=== PATIENT | male | born 1980 | race Native Hawaiian/Other Pacific Islander ===

== ENCOUNTER 2017-05-16 00:52 | Observation (INO) | payer OTHER ==
[2017-05-16] VITALS (9 sets, daily range): BP systolic 108–146; BP diastolic 56–85; PULSE 44–92; RESP 14–16; TEMP 98.4–98.7; O2SAT 100
[~2017-05-16] VITALS: Ht 167.6 cm; Wt 72.1 kg
[2017-05-16] MEDS ORDERED: SODIUM CHLOR 0.9% 1000 ML INJ 1,000 ML IV SCH (01:43)
[2017-05-16] MEDS ORDERED: ONDANSETRON HCL 4 MG/2 ML VIAL IVP ONE (01:45)
[2017-05-16] MEDS ORDERED: SODIUM CHLORIDE 0.9% FLUSH 10 ML FLUSH IV FLUSH PRN ×2 (01:45→08:30)
[2017-05-16] MEDS ORDERED: ATROPINE/SCOPOLAM/HYOSCYAM/PB ELIXIR 10 ML CUP PO ONE (01:45)
[2017-05-16] MEDS ORDERED: MORPHINE SULFATE 2 MG/ML INJ IV PUSH ONE (01:45)
[2017-05-16] MEDS ORDERED: ALUMINUM/MAGNESIUM/SIMETH 30 ML CUP PO ONE (01:45)
[2017-05-16] MEDS ORDERED: FAMOTIDINE 20 MG/2 ML VIAL IV PUSH ONE (01:45)
--- NOTE | 2017-05-16 01:47 | PD ---
HPI Chief Complaint: Abdominal Pain Time Seen by Provider: 01:37 Travel History International Travel<30 days: No Contact w/Intl Traveler<30days: No Traveled to known affect area: No History of Present Illness HPI 37 years old male complains of abdominal pain. Patient states the pain started 3 hours ago. Patient states the pain in cramping pain localized throughout epigastric periumbilical area. Patient denies any pain radiation. Patient states that he has nausea but no vomiting or diarrhea. Patient denies any dysuria or frequency. Patient denies any back pain. Patient denies any fever chills. Patient states that he had the same kind of pain about 2 years ago. Patient was seen by a physician and had blood tests done and sonogram done of the abdomen which were normal. Patient denies any medical problem. Patient's on Zantac for reflux problem. Patient denies any alcohol or illicit drug abuse. On a scale of 1-10 the pain is a 9. PFSH Past Medical History Medical History: Denies Significant Hx Tetanus Vaccination: < 5 Years Influenza Vaccination: No Past Surgical History Surgical History: No Previous Surgery Social History Alcohol Use: No Tobacco Use: No Substance Use: No Allergies-Medications (Allergen,Severity, Reaction): Coded Allergies: No Known Allergies (Unverified , 05/16/17) Review of Systems General / Constitutional: No: Fever Eyes: No: Visual changes HENT: No: Headaches Cardiovascular: No: Chest Pain or Discomfort Respiratory: No: Shortness of Breath Gastrointestinal: Positive: Abdominal Pain Genitourinary: No: Dysuria Musculoskeletal: No: Pain Skin: No Rash Neurologic: No: Weakness Psychiatric: No: Depression Endocrine: No: Polydipsia Hematologic/Lymphatic: No: Easy Bruising Physical Exam Narrative GENERAL: Well-nourished, well-developed patient. SKIN: Focused skin assessment warm/dry. HEAD: Normocephalic. EYES: No scleral icterus. No injection or drainage. NECK: Supple, trachea midline. No JVD or lymphadenopathy. CARDIOVASCULAR: Regular rate and rhythm without murmurs, gallops, or rubs. RESPIRATORY: Breath sounds equal bilaterally. No accessory muscle use. GASTROINTESTINAL: Abdomen soft, nondistended. Patient has moderate tenderness on palpation epigastric and periumbilical area. No rebound tenderness. No mass. MUSCULOSKELETAL: No cyanosis, or edema. BACK: Nontender without obvious deformity. No CVA tenderness. Neurologic exam normal. Data Data Last Documented VS Vital Signs Date Time Temp Pulse Resp B/P (MAP) Pulse Ox O2 Delivery O2 Flow Rate FiO2 05/16/17 02:48 16 05/16/17 02:10 100 Room Air 05/16/17 01:25 64 05/16/17 01:02 98.6 Orders Orders Complete Blood Count With Diff (05/16/17 01:43) Comprehensive Metabolic Panel (05/16/17 01:43) Lipase (05/16/17 01:43) Urinalysis - C+S If Indicated (05/16/17 01:43) Ct Abd/Pel W Iv Contrast(Rout) (05/16/17 01:43) Iv Access Insert/Monitor (05/16/17 01:43) Ecg Monitoring (05/16/17 01:43) Oximetry (05/16/17 01:43) Ondansetron Inj (Zofran Inj) (05/16/17 01:45) Sodium Chlor 0.9% 1000 Ml Inj (Ns 1000 M (05/16/17 01:43) Sodium Chloride 0.9% Flush (Ns Flush) (05/16/17 01:45) Famotidine Inj (Pepcid Inj) (05/16/17 01:45) Morphine Inj (Morphine Inj) (05/16/17 01:45) Al-Mag Hy-Si 40-40-4 Mg/Ml Liq (Mag-Al P (05/16/17 01:45) Vkgbd-Bgstkq-Hxrwtm-Pb Liq ( Liq (05/16/17 01:45) Iohexol 350 Inj (Omnipaque 350 Inj) (05/16/17 02:42) Hydromorphone Pf Inj (Dilaudid Pf Inj) (05/16/17 03:15) Piperacil-Tazo 3.375 Gm Premix (Zosyn 3. (05/16/17 03:15) Labs Laboratory Tests Test 05/16/17 01:54 White Blood Count 9.9 TH/MM3 Red Blood Count 5.91 MIL/MM3 Hemoglobin 15.1 GM/DL Hematocrit 47.2 % Mean Corpuscular Volume 79.9 FL Mean Corpuscular Hemoglobin 25.5 PG Mean Corpuscular Hemoglobin Concent 31.9 % Red Cell Distribution Width 13.2 % Platelet Count 253 TH/MM3 Mean Platelet Volume 8.8 FL Neutrophils (%) (Auto) 59.8 % Lymphocytes (%) (Auto) 28.9 % Monocytes (%) (Auto) 5.1 % Eosinophils (%) (Auto) 5.2 % Basophils (%) (Auto) 1.0 % Neutrophils # (Auto) 5.9 TH/MM3 Lymphocytes # (Auto) 2.9 TH/MM3 Monocytes # (Auto) 0.5 TH/MM3 Eosinophils # (Auto) 0.5 TH/MM3 Basophils # (Auto) 0.1 TH/MM3 CBC Comment DIFF FINAL Differential Comment Blood Urea Nitrogen 17 MG/DL Creatinine 0.89 MG/DL Random Glucose 96 MG/DL Total Protein 8.2 GM/DL Albumin 4.2 GM/DL Calcium Level 9.2 MG/DL Alkaline Phosphatase 107 U/L Aspartate Amino Transf (AST/SGOT) 12 U/L Alanine Aminotransferase (ALT/SGPT) 45 U/L Total Bilirubin 0.6 MG/DL Sodium Level 141 MEQ/L Potassium Level 3.6 MEQ/L Chloride Level 104 MEQ/L Carbon Dioxide Level 27.0 MEQ/L Anion Gap 10 MEQ/L Estimat Glomerular Filtration Rate 97 ML/MIN Lipase 117 U/L [facility] Medical Decision Making Medical Screen Exam Complete: Yes Emergency Medical Condition: Yes Interpretation(s) Last Impressions Abdomen/Pelvis CT 05/16/17 0143 Signed Impressions: Service Date/Time: Tuesday, May 16, 2017 02:34 - CONCLUSION: 1. Enlarged fluid-filled appendix but no inflammatory changes. Early appendicitis could be considered. Correlation with clinical findings is recommended. Jerry Monroy MD 3:12 AM. CBC WBC 9.9. Hemoglobin 15.1 hematocrit 47.2. MCV 79.9. Normal differential. CMP within normal limit. Differential Diagnosis Differential diagnosis including gastritis, PUD, pancreatitis, cholecystitis, colitis, UTI, pyelonephritis, nephrolithiasis. Narrative Course 37 years old male with epigastric and periumbilical pain. Normal saline solution 1 25 cc an hour. Morphine 2 mg IV. Zofran 4 mg IV. Pepcid 20 mg IV. Maalox 30 cc by mouth. 10 cc by mouth. Dilaudid 1 mg IV. Zosyn 3.375 g IV given. Diagnosis Primary Impression: Appendicitis Qualified Codes: K35.3 - Acute appendicitis with localized peritonitis Admitting Information Admitting Physician Requests: Admit Maico Diaz MD May 16, 2017 01:47
[2017-05-16 02:21] LABS: AUTOMATED NEUTROPHIL # 5.9 TH/MM3 (1.8-7.7); BASOPHIL # 0.1 TH/MM3 (0-0.2); CHLORIDE 104 MEQ/L (98-107); EOSINOPHIL # 0.5 TH/MM3 (0-0.4); EOSINOPHIL % 5.2 % (0.0-4.0); HEMATOCRIT 47.2 % (39.0-51.0); HEMOGLOBIN 15.1 GM/DL (13.0-17.0); LYMPH % 28.9 % (9.0-44.0); LYMPHOCYTE # 2.9 TH/MM3 (1.0-4.8); MEAN CELL VOLUME 79.9 FL (80.0-100.0); MEAN CORPUSCULAR HEMOGLOBIN 25.5 PG (27.0-34.0); MEAN CORPUSCULAR HGB CONC 31.9 % (32.0-36.0); MEAN PLATELET VOLUME 8.8 FL (7.0-11.0); MONO % 5.1 % (0.0-8.0); MONOCYTE # 0.5 TH/MM3 (0-0.9); NEUT % 59.8 % (16.0-70.0); PLATELET COUNT 253 TH/MM3 (150-450); RED BLOOD COUNT 5.91 MIL/MM3 (4.50-5.90); RED CELL DISTRIBUTION WIDTH 13.2 % (11.6-17.2); SODIUM (NA) 141 MEQ/L (136-145); WHITE BLOOD COUNT 9.9 TH/MM3 (4.0-11.0)
[2017-05-16 02:24] LABS: CALCIUM 9.2 MG/DL (8.5-10.1)
[2017-05-16 02:25] LABS: ALBUMIN 4.2 GM/DL (3.4-5.0); BLOOD UREA NITROGEN 17 MG/DL (7-18); GLUCOSE,RANDOM 96 MG/DL (74-106); LIPASE 117 U/L (73-393)
[2017-05-16 02:28] LABS: ALT (GPT) 45 U/L (12-78); AST (GOT) 12 U/L (15-37); CREATININE 0.89 MG/DL (0.60-1.30); GLOMERULAR FILTRATION RATE 97 ML/MIN (>89)
[2017-05-16 02:30] LABS: TOTAL BILIRUBIN ADULT 0.6 MG/DL (0.2-1.0); TOTAL PROTEIN 8.2 GM/DL (6.4-8.2)
[2017-05-16 02:31] LABS: ALKALINE PHOSPHATASE 107 U/L (45-117)
[2017-05-16] MEDS ORDERED: IOHEXOL 350 MG/ML 10 ML VIAL (for RAD DIAG) IVCONTRAST ONE (02:42)
--- NOTE | 2017-05-16 03:05 | RADRPT ---
EXAM DATE/TIME: 05/16/2017 02:34 [place] COMPARISON: No previous studies available for comparison. INDICATIONS : Periumbilical pain. IV CONTRAST: 100 cc Omnipaque 350 (iohexol) IV ORAL CONTRAST: No oral contrast ingested. RADIATION DOSE: 6.67 CTDIvol (mGy) MEDICAL HISTORY : None SURGICAL HISTORY : None. ENCOUNTER: Initial ACUITY: 1 day PAIN SCALE: 9/10 LOCATION: [facility] TECHNIQUE: Volumetric scanning of the abdomen and pelvis was performed. Using automated exposure control and ad justment of the mA and/or kV according to patient size, radiation dose was kept as low as reasonably achievable to obtain optimal diagnostic quality images. DICOM format image data is available electro nically for review and comparison. FINDINGS: The liver and spleen are free of focal defects. The gallbladder and pancreas demonstrate no abnormali ty. The adrenal glands are normal. The kidneys demonstrate no evidence of solid renal mass or hydrone phrosis. No free fluid or abdominal masses are identified. No para-aortic adenopathy is seen. The femi endix is fluid-filled and enlarged measuring 12 mm but no parapelvic she'll inflammatory changes are identified. No appendicolith is present. Examination of the pelvis demonstrates no evidence of free fluid or pelvic mass. No abnormally enlarg ed inguinal or retroperitoneal lymph nodes are present. The bladder is unremarkable. CONCLUSION: 1. Enlarged fluid-filled appendix but no inflammatory changes. Early appendicitis could be considered . Correlation with clinical findings is recommended. Jerry Monroy MD on May 16, 2017 at 2:54 Board Certified Radiologist. This report was verified electronically.
[2017-05-16] MEDS ORDERED: HYDROmorphone HCL PF 2 MG/ML VIAL IV PUSH ONE (03:15)
[2017-05-16] MEDS ORDERED: PIPERACIL-TAZO 3.375 GM PREMIX 50 ML IV ONE (03:15)
[2017-05-16] MEDS ORDERED: ZANT150T2 PO (06:36)
[2017-05-16] MEDS ORDERED: MORPHINE SULFATE 2 MG/ML INJ IV PUSH PRN ×2 (08:30→08:45)
[2017-05-16] MEDS ORDERED: PANTOPRAZOLE SODIUM 40 MG VIAL IV PUSH SCH (09:00)
[2017-05-16] MEDS ORDERED: SODIUM CHLORIDE 0.9% FLUSH 10 ML FLUSH IV FLUSH SCH (09:00)
--- NOTE | 2017-05-16 10:23 | PD.CONS ---
cc: Teofilo Ramirez MD HPI Service General Surgery Consult Requested By Dr. Diaz Reason for Consult Abdominal pain; CT scan shows early acute appendicitis. Primary Care Physician No Primary Care Physician History of Present Illness This is a 37 year old male with a past medical history of acid reflux who presents to the ED with complaints of abdominal pain that began yesterday at about 5PM. He did have some spicy chicken and rice just before the onset of abdominal pain. The patient had a similar episode of abdominal pain but the workup was all negative. Labs were obtained which was essentially negative. A CT abdomen pelvis was obtained which shows an enlarged fluid-filled appendix and there is a consideration for early appendicitis. The patient's last meal was yesterday in the late afternoon. A General Surgery consultation has been requested. Review of Systems Constitutional: DENIES: Fatigue, Change in appetite Endocrine: DENIES: Polydipsia, Polyuria, Polyphagia Eyes: DENIES: Diplopia Ears, nose, mouth, throat: DENIES: Hearing loss Respiratory: DENIES: Apneas, Cough Cardiovascular: DENIES: Chest pain Gastrointestinal: COMPLAINS OF: Abdominal pain, Nausea, DENIES: Vomiting Genitourinary: DENIES: Urgency Musculoskeletal: DENIES: Joint pain Integumentary: DENIES: Abnormal pigmentation Hematologic/lymphatic: DENIES: Bruising Neurologic: DENIES: Headache, Localized weakness Psychiatric: DENIES: Mood changes, Depression, Hallucinations Past Family Social History Past Medical History Acid reflux Past Surgical History None Reported Medications Zantac Allergies: Coded Allergies: No Known Allergies (Unverified , 05/16/17) Active Ordered Medications Current Medications Medications (Trade) Dose Ordered Sig/Charles Route Start Time Stop Time Status Last Admin (NS Flush) 2 ml BID IV FLUSH 05/16/17 09:00 05/16/17 10:00 (NS Flush) 2 ml UNSCH PRN IV FLUSH 05/16/17 08:30 (Protonix Inj) 40 mg DAILY IV PUSH 05/16/17 09:00 05/16/17 10:00 (Morphine Inj) 2 mg Q6H PRN IV PUSH 05/16/17 08:45 (Morphine Inj) 2 mg Q3H PRN IV PUSH 05/16/17 08:30 05/16/17 10:00 Piperacillin Sod/ Tazobactam Sod 50 ml @ 100 mls/hr Q8H IV 05/16/17 12:00 Family History Non contributory Social History Denies tobacco use Denies ETOH use Denies illicit drug use 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 Physical Exam Vital Signs Vital Signs Date Time Temp Pulse Resp B/P (MAP) Pulse Ox O2 Delivery O2 Flow Rate FiO2 05/16/17 07:19 05/16/17 06:06 98.4 61 16 108/63 (78) 100 Room Air 05/16/17 03:51 16 05/16/17 03:21 44 16 121/60 (80) 100 Room Air 05/16/17 02:51 44 16 143/74 (97) 100 Room Air 05/16/17 02:48 16 05/16/17 02:21 46 16 112/73 (86) 100 Room Air 05/16/17 02:10 16 100 Room Air 05/16/17 01:25 64 16 146/85 (105) 100 Room Air 05/16/17 01:02 98.6 59 14 139/80 (99) 100 Physical Exam GENERAL: Pleasant 37 year old male resting in bed in mild acute pain. SKIN: Warm and dry. HEAD: Atraumatic. Normocephalic. EYES: Pupils equal and round. No scleral icterus. No injection or drainage. ENT: No nasal bleeding or discharge. Mucous membranes pink and moist. NECK: Trachea midline. CARDIOVASCULAR: Regular rate and rhythm. RESPIRATORY: No accessory muscle use. Clear to auscultation. Breath sounds equal bilaterally. GASTROINTESTINAL: Abdomen soft, nondistended. RLQ tenderness to palpation. No visible scars or hernias. MUSCULOSKELETAL: Extremities without clubbing, cyanosis, or edema. No obvious deformities. NEUROLOGICAL: Awake and alert. No obvious cranial nerve deficits. Motor grossly within normal limits. Five out of 5 muscle strength in the arms and legs. Normal speech. PSYCHIATRIC: Appropriate mood and affect; insight and judgment normal. Laboratory Laboratory Tests Test 05/16/17 01:54 White Blood Count 9.9 Red Blood Count 5.91 Hemoglobin 15.1 Hematocrit 47.2 Mean Corpuscular Volume 79.9 Mean Corpuscular Hemoglobin 25.5 Mean Corpuscular Hemoglobin Concent 31.9 Red Cell Distribution Width 13.2 Platelet Count 253 Mean Platelet Volume 8.8 Neutrophils (%) (Auto) 59.8 Lymphocytes (%) (Auto) 28.9 Monocytes (%) (Auto) 5.1 Eosinophils (%) (Auto) 5.2 Basophils (%) (Auto) 1.0 Neutrophils # (Auto) 5.9 Lymphocytes # (Auto) 2.9 Monocytes # (Auto) 0.5 Eosinophils # (Auto) 0.5 Basophils # (Auto) 0.1 CBC Comment DIFF FINAL Differential Comment Blood Urea Nitrogen 17 Creatinine 0.89 Random Glucose 96 Total Protein 8.2 Albumin 4.2 Calcium Level 9.2 Alkaline Phosphatase 107 Aspartate Amino Transf (AST/SGOT) 12 Alanine Aminotransferase (ALT/SGPT) 45 Total Bilirubin 0.6 Sodium Level 141 Potassium Level 3.6 Chloride Level 104 Carbon Dioxide Level 27.0 Anion Gap 10 Estimat Glomerular Filtration Rate 97 Lipase 117 Result Diagram: 05/16/17 0154 05/16/17 0154 Imaging Last 48 hours Impressions Abdomen/Pelvis CT 05/16/17 0143 Signed Impressions: Service Date/Time: Tuesday, May 16, 2017 02:34 - CONCLUSION: 1. Enlarged fluid-filled appendix but no inflammatory changes. Early appendicitis could be considered. Correlation with clinical findings is recommended. Jerry Monroy MD Assessment and Plan Assessment and Plan 37 year old male with abdominal pain; nausea; CT and physical exam findings of consistent with acute appendicitis -Plan for OR today -Obtain consents -Zosyn -IV Morphine for pain -Zofran -IVF -Procedure explained and all questions answered Discussed Condition With Jumana Harvey May 16, 2017 10:22
[2017-05-16] MEDS ORDERED: ONDANSETRON HCL 4 MG/2 ML VIAL IV PUSH PRN (10:30)
--- NOTE | 2017-05-16 10:51 | HHI.HP ---
cc: Teofilo Ramirez MD [facility] Service ADMISSION NOTE FOR SURGICAL ATTENDING, DR. TEOFILO RAMIREZ General Surgery Primary Care Physician No Primary Care Physician Admission Diagnosis acute appendicitis Chief Complaint: Abdominal pain History of Present Illness This is a 37 year old male with a past medical history of acid reflux who presents to the ED with complaints of abdominal pain that began yesterday at about 5PM. He did have some spicy chicken and rice just before the onset of abdominal pain. The patient had a similar episode of abdominal pain but the workup was all negative. Labs were obtained which was essentially negative. A CT abdomen pelvis was obtained which shows an enlarged fluid-filled appendix and there is a consideration for early appendicitis. The patient's last meal was yesterday in the late afternoon. A General Surgery consultation has been requested. Review of Systems ROS Limitations: Clinical Condition (alert and oriented) Constitutional: DENIES: Fatigue, Weight loss Endocrine: DENIES: Polydipsia, Polyuria, Polyphagia Eyes: DENIES: Diplopia Ears, nose, mouth, throat: DENIES: Hearing loss Respiratory: DENIES: Cough Cardiovascular: DENIES: Chest pain, Syncope Gastrointestinal: COMPLAINS OF: Abdominal pain, Nausea, DENIES: Vomiting Genitourinary: DENIES: Urgency Musculoskeletal: DENIES: Joint pain Integumentary: DENIES: Abnormal pigmentation Hematologic/lymphatic: DENIES: Bruising Immunologic/allergic: DENIES: Eczema Neurologic: DENIES: Headache, Localized weakness Psychiatric: DENIES: Mood changes, Depression Past Family Social History Past Medical History Acid reflux Past Surgical History None Reported Medications Zantac Allergies: Coded Allergies: No Known Allergies (Unverified , 05/16/17) Active Ordered Medications Current Medications Medications (Trade) Dose Ordered Sig/Charles Route Start Time Stop Time Status Last Admin (NS Flush) 2 ml BID IV FLUSH 05/16/17 09:00 05/16/17 10:00 (NS Flush) 2 ml UNSCH PRN IV FLUSH 05/16/17 08:30 (Protonix Inj) 40 mg DAILY IV PUSH 05/16/17 09:00 05/16/17 10:00 (Morphine Inj) 2 mg Q6H PRN IV PUSH 05/16/17 08:45 (Morphine Inj) 2 mg Q3H PRN IV PUSH 05/16/17 08:30 05/16/17 10:00 Piperacillin Sod/ Tazobactam Sod 50 ml @ 100 mls/hr Q8H IV 05/16/17 12:00 (Zofran Inj) 4 mg Q6HR PRN IV PUSH 05/16/17 10:30 UNV Family History Non contributory Social History Denies tobacco use Denies ETOH use Denies illicit drug use Patient works as a Landscaping Specialist. Physical Exam Vital Signs Vital Signs Date Time Temp Pulse Resp B/P (MAP) Pulse Ox O2 Delivery O2 Flow Rate FiO2 05/16/17 07:19 05/16/17 06:06 98.4 61 16 108/63 (78) 100 Room Air 05/16/17 03:51 16 05/16/17 03:21 44 16 121/60 (80) 100 Room Air 05/16/17 02:51 44 16 143/74 (97) 100 Room Air 05/16/17 02:48 16 05/16/17 02:21 46 16 112/73 (86) 100 Room Air 05/16/17 02:10 16 100 Room Air 05/16/17 01:25 64 16 146/85 (105) 100 Room Air 05/16/17 01:02 98.6 59 14 139/80 (99) 100 Physical Exam GENERAL: Pleasant 37 year old male resting in bed in mild acute pain. SKIN: Warm and dry. HEAD: Atraumatic. Normocephalic. EYES: Pupils equal and round. No scleral icterus. No injection or drainage. ENT: No nasal bleeding or discharge. Mucous membranes pink and moist. NECK: Trachea midline. CARDIOVASCULAR: Regular rate and rhythm. RESPIRATORY: No accessory muscle use. Clear to auscultation. Breath sounds equal bilaterally. GASTROINTESTINAL: Abdomen soft, nondistended. RLQ tenderness to palpation. No visible scars or hernias. Mild rebound guarding MUSCULOSKELETAL: Extremities without clubbing, cyanosis, or edema. No obvious deformities. NEUROLOGICAL: Awake and alert. No obvious cranial nerve deficits. Motor grossly within normal limits. Five out of 5 muscle strength in the arms and legs. Normal speech. PSYCHIATRIC: Appropriate mood and affect; insight and judgment normal. Laboratory Laboratory Tests Test 05/16/17 01:54 White Blood Count 9.9 Red Blood Count 5.91 Hemoglobin 15.1 Hematocrit 47.2 Mean Corpuscular Volume 79.9 Mean Corpuscular Hemoglobin 25.5 Mean Corpuscular Hemoglobin Concent 31.9 Red Cell Distribution Width 13.2 Platelet Count 253 Mean Platelet Volume 8.8 Neutrophils (%) (Auto) 59.8 Lymphocytes (%) (Auto) 28.9 Monocytes (%) (Auto) 5.1 Eosinophils (%) (Auto) 5.2 Basophils (%) (Auto) 1.0 Neutrophils # (Auto) 5.9 Lymphocytes # (Auto) 2.9 Monocytes # (Auto) 0.5 Eosinophils # (Auto) 0.5 Basophils # (Auto) 0.1 CBC Comment DIFF FINAL Differential Comment Blood Urea Nitrogen 17 Creatinine 0.89 Random Glucose 96 Total Protein 8.2 Albumin 4.2 Calcium Level 9.2 Alkaline Phosphatase 107 Aspartate Amino Transf (AST/SGOT) 12 Alanine Aminotransferase (ALT/SGPT) 45 Total Bilirubin 0.6 Sodium Level 141 Potassium Level 3.6 Chloride Level 104 Carbon Dioxide Level 27.0 Anion Gap 10 Estimat Glomerular Filtration Rate 97 Lipase 117 Result Diagram: 05/16/17 0154 05/16/17 0154 Imaging Last 48 hours Impressions Abdomen/Pelvis CT 05/16/17142 Signed Impressions: Service Date/Time: Tuesday, May 16, 2017 02:34 - CONCLUSION: 1. Enlarged fluid-filled appendix but no inflammatory changes. Early appendicitis could be considered. Correlation with clinical findings is recommended. MD Shannon Torres VTE Risk Assessment Caprini VTE Risk Assessment: No/Low Risk (score <= 1) VTE Pharm Contraindication: Going to OR today Caprini Risk Assessment Model Point Value = 1 Point Value = 2 Point Value = 3 Point Value = 5 Age 41-60 Minor surgery BMI > 25 kg/m2 Swollen legs Varicose veins or History of unexplained or recurrent spontaneous Oral contraceptives or hormone replacement Sepsis (< 1 month) Serious lung disease, including pneumonia (< 1 month) Abnormal pulmonary function Acute myocardial infarction Congestive heart failure (< 1 month) History of inflammatory bowel disease Medical patient at bed rest Age 61-74 Arthroscopic surgery Major open surgery (> 45 min) Laparoscopic surgery (> 45 min) Malignancy Confined to bed (> 72 hours) Immobilizing plaster cast Central venous access Age >= 75 History of VTE Family history of VTE Factor V Leiden Prothrombin [id number] Lupus anticoagulant Anticardiolipin antibodies Elevated serum homocysteine Heparin-induced thrombocytopenia Other congenital or acquired thrombophilia Stroke (< 1 month) Elective arthroplasty Hip, pelvis, or leg fracture Acute spinal cord injury (< 1 month) Prophylaxis Regimen Total Risk Factor Score Risk Level Prophylaxis Regimen 0-1 Low Early ambulation 2 Moderate Order ONE of the following: *Sequential Compression Device (SCD) *Heparin 5000 units SQ BID 3-4 Higher Order ONE of the following medications: *Heparin 5000 units SQ TID *Enoxaparin/Lovenox 40 mg SQ daily (WT < 150 kg, CrCl > 30 mL/min) *Enoxaparin/Lovenox 30 mg SQ daily (WT < 150 kg, CrCl > 10-29 mL/min) *Enoxaparin/Lovenox 30 mg SQ BID (WT < 150 kg, CrCl > 30 mL/min) AND/OR *Sequential Compression Device (SCD) 5 or more Highest Order ONE of the following medications: *Heparin 5000 units SQ TID (Preferred with Epidurals) *Enoxaparin/Lovenox 40 mg SQ daily (WT < 150 kg, CrCl > 30 mL/min) *Enoxaparin/Lovenox 30 mg SQ daily (WT < 150 kg, CrCl > 10-29 mL/min) *Enoxaparin/Lovenox 30 mg SQ BID (WT < 150 kg, CrCl > 30 mL/min) AND *Sequential Compression Device (SCD) Assessment and Plan Problem List: (1) Acute appendicitis with localized peritonitis ICD Codes: K35.3 - Acute appendicitis with localized peritonitis Status: Acute (2) Appendicitis ICD Codes: K37 - Unspecified appendicitis Status: Acute (3) Right lower quadrant pain ICD Codes: R10.31 - Right lower quadrant pain Status: Acute (4) Right lower quadrant abdominal pain ICD Codes: R10.31 - Right lower quadrant pain Status: Acute (5) Abnormal CT of the abdomen ICD Codes: R93.5 - Abnormal findings on diagnostic imaging of other abdominal regions, including retroperitoneum Status: Acute Assessment and Plan 37 year old male with abdominal pain; nausea; CT and physical exam findings consistent with acute appendicitis -Plan for OR today -Obtain consents -Zosyn -IV Morphine for pain -Zofran -IVF -Procedure explained and all questions answered NOTE FOR SURGICAL ATTENDING, DR. TEOFILO RAMIREZ Patient seen and examined Patient has exquisite tenderness right lower quadrant consistent with appendicitis Plan laparoscopic appendectomy Discussed with the patient the appeared to understand I agree with above assessment and plan. The exam, history, and the medical decision-making described in the above note were completed with the assistance of the mid-level provider. I reviewed and agree with the findings presented. I attest that I had a [id number] encounter with the patient on the same day, and personally performed and documented my assessment and findings in the medical record. The following services were provided during this hospital visit: Chart data review, vital sign assessments/reviewing monitor data Review of consultations notes if present. Medication orders/review and/or management Ordering and/or reviewing lab tests Ordering and/or interpreting/reviewing x-rays and/or diagnostic studies Care of the patient and discussion of the patient with the care team Documentation time To help prompt me to consider important information that might be impacting today's encounter and assessment, information from prior notes written by myself or my colleagues may have been "brought forward/copy and pasted" into today's note. Code Status Full Code Discussed Condition With Dr. Ramirez Mr. Boxcameron Problem Qualifiers (1) Appendicitis: Qualified Codes: K35.3 - Acute appendicitis with localized peritonitis Jumana Calderón May 16, 2017 10:51 Teofilo Ramirez MD May 16, 2017 13:07
[2017-05-16] MEDS ORDERED: ePHEDrine/NS 25 MG/5 ML SYRINGE IV ONE (12:00)
[2017-05-16] MEDS ORDERED: PIPERACIL-TAZO 3.375 GM PREMIX 50 ML IV SCH (12:00)
[2017-05-16] MEDS ORDERED: KETOROLAC TROMETHAMINE 30 MG/ML (IVP) VIAL IV PUSH ONE (12:00)
[2017-05-16] MEDS ORDERED: LIDOCAINE HCL 1% PF 5 ML SYRINGE OTHER ONE (12:00)
[2017-05-16] MEDS ORDERED: DEXAMETHASONE SOD PHOS 4 MG/ML VIAL IV ONE (12:00)
[2017-05-16] MEDS ORDERED: ONDANSETRON HCL 4 MG/2 ML VIAL IV PUSH ONE (12:00)
[2017-05-16] MEDS ORDERED: NEOSTIGMINE 5 MG/5 ML SYRINGE IV PUSH ONE (12:00)
[2017-05-16] MEDS ORDERED: PROPOFOL 200 MG/20 ML AMP IV ONE (12:00)
[2017-05-16] MEDS ORDERED: ROCURONIUM INJ 50 MG/5 ML SYRINGE IV PUSH ONE (12:00)
[2017-05-16] MEDS ORDERED: GLYCOPYRROLATE 1 MG/5 ML SYRINGE IV PUSH ONE (12:00)
[2017-05-16] MEDS ORDERED: BUPIVACAINE/EPINEPHRINE 0.25% PF 30 ML VIAL ONE (13:10)
[2017-05-16] MEDS ORDERED: fentaNYL CITRATE 250 MCG/5 ML AMP ONE (13:26)
--- NOTE | 2017-05-16 14:31 | HHI.PR ---
cc: Teofilo Ramirez MD Immediate Post Op Note Procedure Date: May 16, 2017 Pre Op Diagnosis: (1) Appendicitis (2) Right lower quadrant pain (3) Abnormal CT of the abdomen (4) Right lower quadrant abdominal pain (5) Acute appendicitis with localized peritonitis Post Op Diagnosis: (1) S/P laparoscopic appendectomy (2) Appendicitis (3) Right lower quadrant pain (4) Abnormal CT of the abdomen (5) Right lower quadrant abdominal pain (6) Acute appendicitis with localized peritonitis Surgeon: Teofilo Ramirez Curing Machine Operator(s): Refer to our records Procedure: Laparoscopic appendectomy Findings: Inflamed appendix Complications: None Specimen(s) removed: Appendix Estimated blood loss: Minimal Anesthesia: General Drains: None IVF Patient to: PACU Patient Condition: Good Implant/Devices: SEE IMPLANT LOG (if applicable) Date/Time of Procedure: SEE SURGICAL CARE RECORD Teofilo Ramirez MD May 16, 2017 14:31
[2017-05-16] MEDS ORDERED: NORC5TAB PO (14:33)
--- NOTE | 2017-05-16 14:40 | HHI.DS ---
Discharge Summary Admission Date May 16, 2017 at 03:20 Discharge Date: May 16, 2017 Admitting Diagnosis acute appendicitis (1) Acute appendicitis with localized peritonitis ICD Codes: K35.3 - Acute appendicitis with localized peritonitis Status: Acute (2) Appendicitis ICD Codes: K37 - Unspecified appendicitis Status: Acute (3) Right lower quadrant pain ICD Codes: R10.31 - Right lower quadrant pain Status: Acute (4) Right lower quadrant abdominal pain ICD Codes: R10.31 - Right lower quadrant pain Status: Acute (5) Abnormal CT of the abdomen ICD Codes: R93.5 - Abnormal findings on diagnostic imaging of other abdominal regions, including retroperitoneum Status: Acute Brief History This is a 37 year old male with a past medical history of acid reflux who presents to the ED with complaints of abdominal pain that began yesterday at about 5PM. He did have some spicy chicken and rice just before the onset of abdominal pain. The patient had a similar episode of abdominal pain but the workup was all negative. Labs were obtained which was essentially negative. A CT abdomen pelvis was obtained which shows an enlarged fluid-filled appendix and there is a consideration for early appendicitis. The patient's last meal was yesterday in the late afternoon. A General Surgery consultation has been requested. CBC/BMP: 05/16/17 0154 05/16/17 0154 Significant Findings Laboratory Tests Test 05/16/17 01:54 Red Blood Count 5.91 MIL/MM3 (4.50-5.90) Mean Corpuscular Volume 79.9 FL (80.0-100.0) Mean Corpuscular Hemoglobin 25.5 PG (27.0-34.0) Mean Corpuscular Hemoglobin Concent 31.9 % (32.0-36.0) Eosinophils (%) (Auto) 5.2 % (0.0-4.0) Eosinophils # (Auto) 0.5 TH/MM3 (0-0.4) Aspartate Amino Transf (AST/SGOT) 12 U/L (15-37) Pt Condition on Discharge: Good Discharge Disposition: Disch w/ Home Health Serv Discharge Instructions DIET: Follow Instructions for: Heart Healthy Diet Activities you can perform: Shower Only-No Bath, See Additionl Instruction Activities to Avoid: Concussion Sports, Contact Sports, Lifting/Bending, Weight Bearing, Prolonged Standing, Strenuous Activity, Driving Follow up Referrals: Surgical - 1 Week with Teofilo Ramirez MD New Medications: Hydrocodone-Acetaminophen ([place]) 5 Mg-325 Mg Tab 1 TAB PO Q6H PRN for PAIN, #28 TAB 0 Refills Continued Medications: Ranitidine (Zantac) 150 Mg Tab 150 MG PO DAILY for Reduce Stomach Acid, #30 TAB 0 Refills Attending Statement Patient was in the emergency room was found to have appendicitis Underwent laparoscopic appendectomy In the recovery room doing well plans were made for discharge once he was tolerating diet and that same day surgery criteria Teofilo Ramirez MD May 16, 2017 14:40
[2017-05-16] MEDS ORDERED: *Lactated Ringer's INJ 1,000 ML ONE (15:50)
--- NOTE | 2017-05-26 17:16 | MP ---
cc: ARVIN RAMIREZ M.D. DATE OF SURGERY: 05/16/2017. PREOPERATIVE DIAGNOSIS: 1. Acute appendicitis. 2. Acute abdomen. POSTOPERATIVE DIAGNOSIS: 1. Acute appendicitis. 2. Acute abdomen. OPERATIVE PROCEDURE PERFORMED: Laparoscopic appendectomy. SURGEON: Arvin Ramirez MD. ANESTHESIA: General. INDICATIONS FOR THE PROCEDURE: This is a pleasant 37-year-old gentleman who was complaining of umbilical pain. He came into the emergency room and Dr. Diaz called me after he felt he had appendicitis confirmed with radiologic imaging. Plans were made for the above. DESCRIPTION OF THE PROCEDURE IN DETAIL: The patient was taken to the operating room and placed in the supine position. After endotracheal anesthesia, his abdomen was prepped and draped with Betadine solution. He was given preoperative antibiotics. A time out was done. We made an incision just above the umbilicus. The Veress needle was inserted and the saline load test was performed. The abdomen was insufflated to 15 mmHg. A 10 mm trocar was introduced. The camera was introduced. Two other working ports were placed, a 5 mm below the xiphoid and a 5 mm in-between the two previously placed ports. The camera was introduced. The appendix could be seen. It was obviously inflamed. We took down the mesentery with the harmonic scalpel. Two Endo ties PDS were then placed around the base of the appendix. The appendix was amputated and placed in an EndoCatch and pulled out through the umbilical incision and passed off the field. We checked the dissection site. There was an excellent hemostasis. There was minimal fluid in the pelvis which was evacuated. We then checked our dissection site. The liver was smooth. The peritoneal surface was smooth. No other gross abnormalities seen. The trocars were removed. The fascial layer was closed with a #0 Vicryl at the umbilicus. The skin was closed with a 4-0 Vicryl. Steri-Strips were applied. Sterile bandage applied. The patient tolerated the procedure well and had no immediate postoperative complications. Arvin Ramirez MD JDB/JCKarla /7:24 PM /5:06 PM
== END 2017-05-16 17:46 | disposition home or self-care (01) ==
LOC: PHED 00:52 → PHEDA 03:20 → INTOOBSV 03:20 → PH3B 07:33
PROVIDERS: ADMIT Surgery; ATTEND Surgery
DX: K35.3 Acute appendicitis with localized peritonitis (principal); K21.9 Gastro-esophageal reflux disease without esophagitis
CPT/HCPCS: 00840; 44970; 74177; 80053; 83690; 85025; 88304; 96361; 96365; 96375; 96376; 99285; C9113; G0378; J1100; J1170; J1885; J2270; J2405; J2543; J2710; J3010; J7030; J7120; Q9967